=== PATIENT | female | born 1970 | race Caucasian/White ===

== ENCOUNTER 2023-09-03 15:21 | Emergency (ER) | payer MEDICAID, SELFPAY ==
[2023-09-03 15:28] VITALS: BP 171/90; PULSE 73; RESP 18; TEMP 36.5; O2SAT 100; BMI 30.9
--- NOTE | 2023-09-03 16:02 | ED_ITS ---
HPI - General Adult General Chief complaint: Urogenital-Female Stated complaint: LUMP Time Seen by Provider: 09/03/23 15:42 Source: patient Mode of arrival: walk-in Limitations: no limitations History of Present Illness HPI narrative: Patient is a 52-year-old female who is presenting to the Emergency Room with chief complaint of a small hard firm piece size mass that is in the soft tissue above the right superior labia majora. Patient states he used to be a small Ruth has got bigger. It is never drained, she's never been able to squeeze it to get any type of fluid, blood or pus out of it. It is in the deeper soft tissue, pea-sized. Patient says it is slowly gotten bigger over the past couple years. Patient has no vaginal odor, discharge, bleeding. No urinary frequency, dysuria or burning. No trauma, no other acute complaints. Patient is a diabetic, also takes Wellbutrin and Lexapro. Patient has never had syphilis, herpes, or any history of STD. Initial HPI and physical exam was done with Angelica Francisco RN at bedside the entire time. All systems are negative except as noted/marked. All systems reviewed and otherwise negative. . Nurses note and vital signs reviewed and patient is not hypoxic. General: The patient appears well and in no apparent distress. Patient is resting comfortably on cart. Patient is not toxic, lethargic, or listless Skin: Warm, dry, no pallor noted. There is no rash noted. No petechiae, purpura. Head: Normocephalic, atraumatic Eye: Normal conjunctiva, no drainage, EOMI. PERRL Ears, Nose, Mouth, and Throat: oral mucosa is moist. Cardiovascular: Regular Rate and Rhythm, no murmur, gallop, rub Respiratory: Patient is in no distress, no accessory muscle use, lungs are clear to auscultation, no wheezing, rales or rhonchi : Patient has a small pea-sized palpable cyst/mass to the right superior labia majora. This is not superficial, this is in the deeper soft tissue but is able to be palpated. Patient can show me exactly where it is. It is not tender. His no signs of any folliculitis, abscess, no signs of Bartholin cyst. Patient has no vaginal bleeding, discharge, odor, no signs of cellulitis. There is no signs of infection. No signs of folliculitis, or any other acute findings. No superficial lesions. Musculoskeletal: Patient has full range of motion of all of the extremities, no motor, sensory, or focal neurological deficits Neurological: A&O x3, normal speech Psychiatric: Cooperative Related Data Allergies Allergy/AdvReac Type Severity Reaction Status Date / Time Penicillins AdvReac Intermediate Verified 09/03/23 15:28 PFSH PFS Social History Smoking status: Never smoker Exam Constitutional Vital Signs, click to edit/add: Last Vital Signs Temp 97.7 F 09/03/23 15:28 Pulse 73 09/03/23 15:28 Resp 18 09/03/23 15:28 BP 171/90 H 09/03/23 15:28 Pulse Ox 100 09/03/23 15:28 Course Vital Signs Vital signs: Vital Signs Temperature 97.7 F 09/03/23 15:28 Pulse Rate 73 09/03/23 15:28 Respiratory Rate 18 09/03/23 15:28 Blood Pressure 171/90 H 09/03/23 15:28 Pulse Oximetry 100 09/03/23 15:28 Temperature 97.7 F 09/03/23 15:28 Pulse Rate 73 09/03/23 15:28 Respiratory Rate 18 09/03/23 15:28 Blood Pressure 171/90 H 09/03/23 15:28 Pulse Oximetry 100 09/03/23 15:28 Medical Decision Making [facility] Narrative Medical decision making narrative: Patient has no clear etiology of what the diagnosis is. Differential diagnosis was discussed at bedside with patient and on discharge paperwork. Angelica Francisco was at bedside the entire time during initial HPI and physical exam. No acute testing is indicated at this time. Patient will be referred to local PCP And also PUBLIC ADDRESS SYSTEM OPERATOR. No questions at discharge. Patient understands the need for follow up with specialist. Patient did have a PCP in [place], Patient states that her PCP/PUBLIC ADDRESS SYSTEM OPERATOR just moved to [place], she has no local physician. Patient said this has been there for a couple years, slowly getting bigger. No pain, no tenderness, patient's friend just Diagnosed a left breast cancer, she is doing well. However this did scare patient to be checked to make sure she has no type of vaginal cancer. Education done at bedside, patient was extremely pleasant take care of. No questions at discharge Discharge Plan Discharge Chief Complaint: Urogenital-Female Clinical Impression: Mass Patient Disposition: Home, Self-Care Condition: Fair Instructions: Superficial Mass Needle Biopsy (ED), Cyst (ED), Soft Tissue Mass (ED) Additional Instructions: Continue to name's of PUBLIC ADDRESS SYSTEM OPERATOR to follow up with, Dr. Wheat is systems development consultant today. Follow-up with further outpatient testing as indicated. I gave you information about cyst and mass just for educational purposes only. Stand Alone Forms: Portal Instructions Referrals: Bryce Mac DO [Physician] - 1 week Physician,Non-Staff, [Primary Care Provider] - 1 week Sandi Wheat MD [Physician] - 1 week
== END 2023-09-03 16:07 | disposition home or self-care (01) ==
PROVIDERS: Emergency Provider Emergency Medicine
DX: N90.89 Other specified noninflammatory disorders of vulva and perineum (principal)
CPT/HCPCS: 99283